=== PATIENT | male | born 1930 | race Caucasian/White ===

== ENCOUNTER → 2016-10-06 | Outpatient (CLI) | payer BC ==
[~2016-10-06] MED LIST: AMLO-110 PO; DSWCR; FINA5TAB PO; GABA-112 PO; IBUP-1427 PO; KETO2CRE14; PRLSR20 PO; RANI300T2 PO; SIMV20TA2 PO; TRIM100T20 PO
--- NOTE | 2016-10-06 12:27 | DIAGNOSTIC IMAGING REPORT ---
VIDEO SWALLOW STUDY CLINICAL HISTORY: Dysphagia. COMPARISON STUDY: No priors. Fluoroscopy time: 2.7 minutes. FINDINGS: Fluoroscopic guidance was provided to the department of speech pathology in performing a video swallow study. The patient consumed barium-impregnated pudding, cracker with paste, nectar thick liquid, and thin barium while the swallowing mechanism was observed in real-time. Pharyngeal penetration was seen with thin barium. No aspiration was identified. Swallows with the remaining textures was normal. IMPRESSION: 1. There is pharyngeal penetration without aspiration seen on thin barium. 2. Swallows with the remaining textures were normal. 3. See dedicated speech pathology report for detailed findings and recommendations. Dictated: 10/06/2016 12:14 PM Transcribed: 10/06/2016 12:27 PM [email or web address] Electronically signed by: Carter Watson M.D. 10/06/2016 12:28 PM Dictated Date/Time: 10/06/2016 12:14 PM
[2016-10-06 13:12] LABS: HEMATOCRIT 38.6 % (42-52)
--- NOTE | 2016-10-06 13:50 | SWALLOWING EVALUATION ---
HISTORY: This 86 year-old man was referred for a VFSS at [facility] in order to address c/o dysphagia. The patient has a PMH significant for lower back pain, bilateral lower extremity neuropathy, GERD, HTN, dyslipidemia, CAD, BPH, OA, h/o MT. Currently the patient's diet level is regular. PROCEDURE: The patient was seen in the Radiology Department of [facility] for the VFSS. Cursory examination of the oral cavity revealed adequate dentition. Movement of the articulators was WNL. The patient was seated on a stool and was viewed in both the Anterior-Posterior (A-P) and Lateral planes. Volitional phonation exercises completed in the A-P plane revealed bilateral vocal fold movement and vocal intensity within functional limits. In the lateral plane, the patient was given the following boluses: 1 tsp. thin liquid barium x 2, single swallow thin liquid barium self-presented from a cup, sequential swallows of thin liquid barium self-presented from a cup, 1 tsp. nectar-thick liquid barium, single swallow nectar-thick liquid barium self-presented from a cup, sequential swallows nectar-thick liquid barium self-presented from a cup, 1 tsp. barium pudding, and 1 club cracker with barium pudding. The patient was then repositioned into the A-P plane and given the following boluses: 1 tsp. nectar-thick liquid barium and 1 tsp. barium pudding and a single swallow of thin liquid barium. RESULTS: Oral Stage: Labial closure was adequate. A cohesive bolus was held. There was brisk tongue movement in bolus transport. There was a collection oral residue on the tongue after the initial swallow; however, this was cleared easily with a second swallow. Swallow was delayed with the head of the bolus in the pyriforms sinuses when pharyngeal swallow was initiated. Patient presents with a delayed swallow and some oral residue, but swallow is functional for patient's age. Pharyngeal Stage: Soft palate elevation was complete. Laryngeal elevation was incomplete with partial superior movement of thyroid cartilage/partial approximation of arytenoids to epiglottic petiole. Anterior hyoid excursion was partial. Epiglottic inversion was complete. Laryngeal vestibular closure was incomplete with a narrow column of contrast in the laryngeal vestibule. Pharyngeal stripping wave was present, but diminished. Pharyngeal contraction showed bilateral bulging. Pharyngoesophageal segment opening was partial with partial distension/duration and partial obstruction of flow. Tongue base retraction was reduced with a trace column of contrast between the tongue base and posterior pharyngeal wall. There was no pharyngeal residue with solid boluses; however, there was trace residue in the valleculae and pyriforms sinuses with liquids of all consistencies. There was laryngeal penetration of thin liquids, but no aspiration with any consistency. Swallow strength is reduced evidenced by reduced laryngeal movement, reduced tongue base strength, and incomplete pharyngeal contraction. Bilateral bulging represents muscle weakness in the pharynx. However, patient's swallow is functional for his age. Esophageal Stage: There was mild retention in the esophagus which was mostly cleared with a liquid wash. SUMMARY/RECOMMENDATIONS: This patient presents with mild oral-pharyngeal dysphagia characterized by reduced laryngeal movement/pharyngeal strength and a delayed swallow with laryngeal penetration of thin liquids. In addition, the patient presents with s/s esophageal dysfunction, but has knows GERD. The following is recommended: 1. Regular diet, thin liquids. 2. Compensatory Strategies: Alternate liquids and solids. Take small bites and small sips. 3. Consider a slippery diet and GI consult or medication management to address concerns of reflux and esophageal dysfunction. Slippery diet: Choose foods that are loose, moist, and slippery. Avoid foods that are thick, doughy, and pasty. Use condiments as necessary to make foods slippery. A summary of the results and recommendations was discussed with patient and understanding was verbalized. Thank you for referral of this patient. Please contact me at if any additional information is needed Kalyn Renee [facility]
[2016-10-06 14:03] LABS: BLOOD UREA NITROGEN 37 mg/dl (7-18); BUN/CREATININE RATIO 26.5 (10-20); CARBON DIOXIDE 22 mmol/L (21-32); CHLORIDE 106 mmol/L (98-107); GLUCOSE 100 mg/dl (70-99); POTASSIUM 4.5 mmol/L (3.5-5.1); SODIUM 138 mmol/L (136-145)
== END | disposition home or self-care (01) ==
LOC: C.RAD 11:13
PROVIDERS: ATTEND Internal Medicine Geriatric Medicine
DX: R13.10 Dysphagia, unspecified (principal); D64.9 Anemia, unspecified; N18.9 Chronic kidney disease, unspecified

== ENCOUNTER → 2016-10-11 | Outpatient (CLI) | payer BC | END | disposition home or self-care (01) | LOC: C.LABSPEC 17:12 → C.PATHSPEC 17:12 | PROVIDERS: ATTEND Nurse Practitioner Adult Health | DX: N40.1 Benign prostatic hyperplasia with lower urinary tract symptoms (principal) ==

== ENCOUNTER → 2016-10-13 | Outpatient (CLI) | payer BC ==
--- NOTE | 2016-10-13 14:29 | DIAGNOSTIC IMAGING REPORT ---
RENAL ULTRASOUND HISTORY: Increasing creatinine. COMPARISON: Abdomen and pelvis CT 12/08/2006. FINDINGS: Right kidney: 9.1 cm. No hydronephrosis. Normal corticomedullary differentiation and cortical thickness. A 7 mm cyst within the upper pole, unchanged. Left kidney: 9.3 cm. No hydronephrosis. Normal corticomedullary differentiation and cortical thickness. Bladder: No bladder wall thickening. The bilateral ureteral jets were identified. IMPRESSION: Stable subcentimeter cyst within the right kidney. No hydronephrosis. Electronically signed by: Navi Schmitt M.D. 10/13/2016 2:28 PM Dictated Date/Time: 10/13/2016 2:27 PM
[2016-10-13 17:20] LABS: BLOOD UREA NITROGEN 35 mg/dl (7-18); BUN/CREATININE RATIO 21.6 (10-20); CALCIUM 8.8 mg/dl (8.5-10.1); CARBON DIOXIDE 22 mmol/L (21-32); CHLORIDE 108 mmol/L (98-107); GLUCOSE 100 mg/dl (70-99); POTASSIUM 4.7 mmol/L (3.5-5.1); SODIUM 136 mmol/L (136-145)
== END | disposition home or self-care (01) ==
LOC: C.ULTRBC 12:51
PROVIDERS: ATTEND Internal Medicine Geriatric Medicine
DX: N18.9 Chronic kidney disease, unspecified (principal); N28.1 Cyst of kidney, acquired; R94.4 Abnormal results of kidney function studies

== ENCOUNTER → 2016-11-15 | Outpatient (CLI) | payer BC ==
[2016-11-15 14:25] LABS: BLOOD UREA NITROGEN 31 mg/dl (7-18); BUN/CREATININE RATIO 22.3 (10-20); CALCIUM 8.8 mg/dl (8.5-10.1); CARBON DIOXIDE 23 mmol/L (21-32); CHLORIDE 109 mmol/L (98-107); GLUCOSE 103 mg/dl (70-99); POTASSIUM 4.3 mmol/L (3.5-5.1); SODIUM 138 mmol/L (136-145)
== END | disposition home or self-care (01) ==
LOC: C.LABBC 10:02
PROVIDERS: ATTEND Internal Medicine Geriatric Medicine
DX: N18.9 Chronic kidney disease, unspecified (principal)

== ENCOUNTER → 2017-02-25 | Outpatient (CLI) | payer BC ==
[~2017-02-25] MED LIST changes: +TRIM100T PO; -TRIM100T20 PO
[2017-02-25 09:52] LABS: BASO % 0.3 %; BASO ABS # 0.02 K/uL (0-0.2); COMPLETE YES; EOS % 3.5 %; HEMATOCRIT 39.5 % (42-52); IG% 0.5 %; LYMPH % 20.9 %; LYMPH ABS # 1.31 K/uL (1.2-3.4); MEAN CORPUSCULAR HEMOGLOBIN 33.7 pg (25-34); MEAN CORPUSCULAR HGB CONC 35.4 g/dl (32-36); MEAN PLATELET VOLUME 10.2 fL (7.4-10.4); NEUT % 67.8 %; PLATELET COUNT 177 K/uL (130-400); RED BLOOD COUNT 4.16 M/uL (4.7-6.1); WHITE BLOOD COUNT 6.26 K/uL (4.8-10.8)
[2017-02-25 10:01] LABS: ESTIMATED AVERAGE GLUCOSE 126 mg/dl; HA1C FLAG Normal (Normal)
[2017-02-25 10:17] LABS: ALT/SGPT 23 U/L (12-78); BLOOD UREA NITROGEN 38 mg/dl (7-18); BUN/CREATININE RATIO 25.8 (10-20); CALCIUM 8.8 mg/dl (8.5-10.1); CARBON DIOXIDE 23 mmol/L (21-32); CHLORIDE 107 mmol/L (98-107); CHOLESTEROL 132 mg/dl (0-200); CREATININE 1.46 mg/dl (0.60-1.40); GLUCOSE 93 mg/dl (70-99); POTASSIUM 4.4 mmol/L (3.5-5.1); SODIUM 137 mmol/L (136-145)
[2017-02-25 10:28] LABS: ALB/GLOB RATIO 1.1 (0.9-2); ALKALINE PHOSPHATASE 55 U/L (45-117); AST/SGOT 24 U/L (15-37); HDL CHOLESTEROL 44 mg/dl; LDL CHOLESTEROL CALCULATED 65 mg/dl; TRIGLYCERIDES 114 mg/dl (0-150); VERY LOW DENSITY LIPOPROT CALC 23 mg/dl
== END | disposition home or self-care (01) ==
LOC: C.LAB 09:10
PROVIDERS: ATTEND Internal Medicine Geriatric Medicine
DX: I12.9 Hypertensive chronic kidney disease with stage 1 through stage 4 chronic kidney disease, or unspecified chronic kidney disease (principal); E78.5 Hyperlipidemia, unspecified; M48.061 Spinal stenosis, lumbar region without neurogenic claudication; D64.9 Anemia, unspecified; N18.9 Chronic kidney disease, unspecified; G62.9 Polyneuropathy, unspecified; I25.10 Atherosclerotic heart disease of native coronary artery without angina pectoris; G31.84 Mild cognitive impairment of uncertain or unknown etiology; R29.6 Repeated falls

== ENCOUNTER → 2017-03-17 | Outpatient (CLI) | payer BC | END | disposition home or self-care (01) | LOC: C.LABBC 12:14 | PROVIDERS: ATTEND Physician Assistant Medical | DX: J02.9 Acute pharyngitis, unspecified (principal) ==